=== PATIENT | male | born 1970 | race Caucasian/White ===

== ENCOUNTER 2024-05-17 18:37 | Emergency (ER) | payer SELFPAY ==
[2024-05-17] MEDS ORDERED: Lidocaine 1% w/Epinephrine 1:200K 30 ML VIAL ONE (19:19)
[2024-05-17] MEDS ORDERED: Boostrix 0.5 ML (Tdap) VIAL (>/=7 yrs of age) ONE (19:21)
[2024-05-17 19:44] LABS: #Basophils 0.06 10x3/uL (0.0-0.2); #Eosinphils 0.19 10x3/uL (0.0-0.5); #Monocytes 0.79 10x3/uL (0.0-1.1); #Neutrophils 5.01 10x3/uL (1.5-8.4); %Basophils 0.7 % (0.0-2.0); %Eosinophils 2.3 % (0.0-6.0); %Lymphocytes 25.3 % (18.0-47.0); %Monocytes 9.7 % (0.0-10.0); %Neutrophils 61.8 % (40.0-75.0); Hemoglobin 14.7 g/dL (13.5-17.5); Mean Corpuscular Volume 88.6 fL (81.2-95.1); Mean Platelet Volume 9.5 fL (7.4-10.4); Platelet Count 265 10x3/uL (150-450); RBC Distribution Width 12.9 % (11.5-14.5); Red Blood Cell (RBC) Count 4.74 10x6/uL (4.32-5.72); White Blood Cell (WBC) Count 8.1 10x3/uL (3.5-10.5)
[2024-05-17 19:49] LABS: Actual Bicarbonate (HCO3v) 21.2 mEq/L (22-28); Analyzer IN Cardio CS ER; Base Excess -1.4 mEq/L (-2 - +2); Chloride (VBG) 98 mmol/L (98-106); Hematocrit-VBG 46 % (42.0-52.0); Hemoglobin (Hb) 15.6 g/dL (13.1-17.2); Potassium (VBG) 3.97 mmol/L (3.70-5.30); Puncture Site Other Site; RapidComm Collect By lab; Sodium 134 mmol/L (133-146); pH (venous) 7.459 (7.32-7.43)
[2024-05-17 19:54] LABS: Phosphorus 2.6 mg/dL (2.3-4.7)
[2024-05-17 19:55] LABS: ALT (SGPT) 18 U/L (8-55); AST (SGOT) 14 U/L (5-34); Albumin 3.1 g/dL (3.5-5.0); Alkaline Phosphatase 88 U/L (40-110); Anion Gap 14 mmol/L (10-20); BUN (Urea Nitrogen) 9 mg/dL (8.4-25.7); Bilirubin, Total 0.4 mg/dL (0.2-1.2); Calc. Creatinine Clearance 0 mL/min (70-130); Calcium 8.8 mg/dL (7.8-10.44); Carbon Dioxide 20 mmol/L (22-29); Chloride 101 mmol/L (98-107); Estimated GFR 64; Magnesium 1.5 mg/dL (1.6-2.6); Potassium 3.9 mmol/L (3.5-5.1); Protein, Total 6.1 g/dL (6.0-8.3); Sodium 131 mmol/L (136-145)
[2024-05-17 19:57] LABS: Glucose 573 mg/dL (70-105)
[2024-05-17] MEDS ORDERED: Magnesium 2 GM/50 ML BAG (IN WATER) ONE (20:49)
[2024-05-17] MEDS ORDERED: Ketorolac Tromethamine 30 MG (1 mL) VIAL ONE (21:27)
[2024-05-17 22:22] LABS: Lactic Acid 1.7 mmol/L (0.5-2.2)
[2024-05-17] MEDS ORDERED: Sulfameth/Trimethoprim DS 800-160mg TAB ONE (22:24)
[2024-05-17] MEDS ORDERED: Morphine 4 MG/ML VIAL ONE (22:36)
[2024-05-17] MEDS ORDERED: Insulin Regular, Human 100 UNIT/ML 10 ML VIAL ONE (23:22)
[2024-05-17] MEDS ORDERED: Ondansetron PF 4 MG/2 ML Vial ONE (23:22)
[2024-05-17 23:55] LABS: Anion Gap 13 mmol/L (10-20); BUN (Urea Nitrogen) 10 mg/dL (8.4-25.7); Calc. Creatinine Clearance 0 mL/min (70-130); Calcium 8.5 mg/dL (7.8-10.44); Carbon Dioxide 21 mmol/L (22-29); Chloride 103 mmol/L (98-107); Estimated GFR 82; Potassium 3.8 mmol/L (3.5-5.1); Sodium 133 mmol/L (136-145)
[2024-05-17 23:56] LABS: Analyzer IN Cardio CS ER; Base Excess -3.9 mEq/L (-2 - +2); Calcium, Ionized (venous) 1.11 mmol/L (1.16-1.32); Chloride (VBG) 100 mmol/L (98-106); Hematocrit-VBG 43 % (42.0-52.0); Hemoglobin (Hb) 14.6 g/dL (13.1-17.2); Puncture Site Other Site; RapidComm Collect By lab; pH (venous) 7.394 (7.32-7.43)
[2024-05-17 23:57] LABS: Critical Call Chemistry NUR.AEB@2357; Glucose 457 mg/dL (70-105)
== END 2024-05-18 00:40 | disposition home or self-care (01) ==
LOC: CSHERS 18:37
DX: L02.413 Cutaneous abscess of right upper limb (principal); E11.65 Type 2 diabetes mellitus with hyperglycemia; I10 Essential (primary) hypertension; Z55.0 Illiteracy and low-level literacy
CPT/HCPCS: 10060; 36415; 36416; 80053; 82010; 82805; 83605; 83735; 84100; 85025; 87070; 87077; 87186; 87205; 90471; 90715; 96361; 96374; 96375; J1815; J1885; J2270; J2405; J3475